=== PATIENT | male | born 1970 | race Two or more races ===

== ENCOUNTER 2019-02-06 07:18 | Emergency (ER) | payer BC ==
[~2019-02-06] VITALS: Ht 170.2 cm; Wt 82.0 kg
[2019-02-06 08:09] LABS: BASOPHILS % 0.3 % (0.0-2.0); EOSINOPHILS % 0.8 % (0.0-5.0); HEMATOCRIT. 44.5 % (42.0-52.0); HEMOGLOBIN. 15.4 g/dL (14.0-18.0); LYMPHOCYTES % 18.6 % (20.0-50.0); MEAN CORPUSCULAR HEMOGLOBIN 31.1 pg (28.0-32.0); MEAN CORPUSCULAR VOLUME 89.7 fL (80.0-94.0); MEAN PLATELET VOLUME 8.2 fl (7.4-10.4); MONOCYTES % 4.8 % (2.0-8.0); NEUTROPHILS % 75.5 % (40.0-76.0); PLATELET 195 x1000/uL (130-400); RED BLOOD CELL COUNT 4.97 mill/uL (4.7-6.1); RED CELL DISTRIBUTION WIDTH 12.8 % (11.6-14.6)
[2019-02-06 08:16] LABS: CHLORIDE 104 mEq/L (98-107)
[2019-02-06 09:20] VITALS: BP 113/79
== END 2019-02-06 09:25 | disposition home or self-care (01) ==
LOC: ER 07:18
DX: R55 Syncope and collapse (principal); I10 Essential (primary) hypertension
CPT/HCPCS: 36415; 71045; 83880; 84484; 93005; 99284